=== PATIENT | male | born 1995 | race Two or more races ===

== ENCOUNTER 2023-10-19 06:05 | Inpatient (IN) | payer BC ==
[~2023-10-19] VITALS: Ht 167.6 cm; Wt 84.1 kg
[2023-10-19 06:42] LABS: ANION GAP 10 mmol/L (8-16); CALCIUM, TOTAL 8.7 mg/dL (8.8-10.5); CARBON DIOXIDE 29 mmol/L (22-29); CHLORIDE 100 mmol/L (98-107); CREATININE 1.19 mg/dL (0.60-1.30); GLOMERULAR FILTR. RATE CALC > 60 mL/min (>60); GLUCOSE,RANDOM 124 mg/dL (70-110); SODIUM SERUM 139 mmol/L (136-145); UREA NITROGEN, BLOOD 17 mg/dL (7-18)
[2023-10-19 06:43] LABS: ALCOHOL, BLOOD (SERUM) < 3 mg/dL (0-10)
[2023-10-19 06:48] LABS: ALANINE AMINOTRANSFERASE 33 U/L (12-78); ALBUMIN 4.4 g/dL (3.4-5.0); ALKALINE PHOSPHATASE 95 U/L (46-116); ASPARTATE AMINOTRANSFERASE 20 U/L (15-37); BILIRUBIN,TOTAL 0.4 mg/dL (0.1-1.0); TOTAL PROTEIN, SERUM 8.1 g/dL (6.4-8.2)
[2023-10-19 07:51] LABS: PH,URINE DRUG SCREEN 6.5 (5.0-8.0)
[2023-10-19 07:57] LABS: ALCOHOL, URINE DRUG SCREEN NEGATIVE (NEGATIVE); AMPHET/METH SCREEN,URINE NEGATIVE (NEGATIVE); BARBITURATE SCREEN, URINE NEGATIVE (NEGATIVE); BENZODIAZEPINES SCREEN,URINE NEGATIVE (NEGATIVE); CANNABINOID SCREEN,URINE POSITIVE (NEGATIVE); COCAINE SCREEN,URINE NEGATIVE (NEGATIVE); METHADONE SCREEN, URINE NEGATIVE (NEGATIVE); OPIATE SCREEN,URINE NEGATIVE (NEGATIVE); PHENCYCLIDINE SCREEN,URINE NEGATIVE (NEGATIVE)
[2023-10-19] MEDS ORDERED: LORazepam 2 MG TABLET PO PRN (08:15)
[2023-10-19] MEDS ORDERED: HALOPERIDOL 5 MG TABLET PO PRN (08:15)
[2023-10-19] MEDS ORDERED: ZOLPIDEM TARTRATE 10 MG TABLET PO PRN (08:15)
[2023-10-19 08:32] LABS: BASOPHILS % (AUTO) 0.5 % (0.0-2.0); EOSINOPHILS % (AUTO) 1.6 % (1.0-6.0); HEMATOCRIT 44.7 % (41-53); HEMOGLOBIN 15.1 g/dL (13.5-17.5); LYMPHOCYTES # (AUTO) 3.7 K/uL (1.0-4.8); LYMPHOCYTES % (AUTO) 34.7 % (22.0-44.0); MEAN CORPUSCULAR HEMOGLOBIN 31.8 pg (26.0-34.0); MEAN CORPUSCULAR HGB CONC 33.7 G/dL (31.0-37.0); MEAN CORPUSCULAR VOLUME 94 fL (80-100); MONOCYTES # (AUTO) 0.9 K/uL (0.1-1.0); MONOCYTES % (AUTO) 8.1 % (2.0-9.0); NEUTROPHILS # (AUTO) 5.9 K/uL (1.8-7.7); NEUTROPHILS % (AUTO) 55.1 % (40.0-70.0); PLATELET COUNT (AUTO) 425 K/uL (150-450); RED BLOOD CELL COUNT(AUTO) 4.74 MIL/uL (4.50-5.90); WHITE BLOOD COUNT (AUTO) 10.7 K/uL (4.5-11.0)
[2023-10-19 09:54] LABS: COVID AG,FIA SOURCE NASAL SWAB
[2023-10-19 10:36] LABS: SARS-COV2 (COVID) ANTIGEN,FIA Negative (Negative)
[2023-10-19 11:29] VITALS: BP 149/90; PULSE 66; RESP 18; TEMP 97.5; O2SAT 96
[2023-10-19] MEDS ORDERED: DOCUSATE SODIUM 100 MG CAPSULE PO PRN (20:00)
[2023-10-19] MEDS ORDERED: LOPERAMIDE HCL 2 MG CAPSULE PO PRN (20:00)
[2023-10-19] MEDS ORDERED: MAG HYDROX/ALUMINUM HYD/SIMETH ES 30 ML SUSPENSION UDCUP PO PRN (20:00)
[2023-10-19] MEDS ORDERED: CloNIDine HCL 0.1 MG TABLET PO PRN (20:00)
[2023-10-19] MEDS ORDERED: MAGNESIUM HYDROXIDE SUSPENSION 30 ML UDCUP PO PRN (20:00)
[2023-10-19] MEDS ORDERED: PETROLATUM,WHITE 28 GM JELLY TP PRN (20:00)
[2023-10-19] MEDS ORDERED: NICOTINE 14 MG/24 HOUR PATCH TD PRN (20:00)
[2023-10-19] MEDS ORDERED: ACETAMINOPHEN 325 MG TABLET PO PRN (20:00)
[2023-10-19] MEDS ORDERED: ALBUTEROL SULFATE HFA 90 MCG/PUFF 8 GM INHALER IH PRN (20:00)
[2023-10-19] MEDS ORDERED: GuaiFENesin/D-METHORPHAN [SUGAR-FREE] 200-20MG/10 ML SYRUP UDCUP PO PRN (20:00)
[2023-10-19] MEDS ORDERED: ONDANSETRON HCL 4 MG TABLET PO PRN (20:00)
[2023-10-19] MEDS ORDERED: IBUPROFEN 400 MG TABLET PO PRN (20:00)
[2023-10-19 21:47] VITALS: BP 135/73; PULSE 78; RESP 18; TEMP 97.5; O2SAT 98
[2023-10-20 08:23] LABS: CHOL/HDL RATIO 4.4 (4.2-7.3); THYROID STIMULATING HORMONE 19.62 uIU/mL (0.36-3.74)
[2023-10-20 08:43] LABS: APPEARANCE,URINE CLEAR (CLEAR); BILIRUBIN,URINE NEGATIVE (NEGATIVE); COLOR,URINE YELLOW (YELLOW); GLUCOSE, URINE (UA) NEGATIVE (NEGATIVE); KETONES,URINE TRACE mg/dL (NEGATIVE); LEUKOCYTE ESTERASE ,URINE NEGATIVE (NEGATIVE); NITRATE,URINE NEGATIVE (NEGATIVE); OCCULT BLOOD,URINE NEGATIVE (NEGATIVE); PH,URINE 6.5 (5.0-8.0); PH,URINE DRUG SCREEN 6.5 (5.0-8.0); PROTEIN,URINE TRACE mg/dL (NEGATIVE); SPECIFIC GRAVITIY, URINE 1.031 (1.003-1.030)
[2023-10-20 08:54] LABS: HEMOGLOBIN A1C 5.8 % (3.8-5.6)
[2023-10-20 09:09] VITALS: BP 136/78; PULSE 92; RESP 18; TEMP 98.7; O2SAT 96
[2023-10-20 09:35] LABS: ALCOHOL, URINE DRUG SCREEN NEGATIVE (NEGATIVE); AMPHET/METH SCREEN,URINE NEGATIVE (NEGATIVE); BARBITURATE SCREEN, URINE NEGATIVE (NEGATIVE); BENZODIAZEPINES SCREEN,URINE NEGATIVE (NEGATIVE); CANNABINOID SCREEN,URINE POSITIVE (NEGATIVE); COCAINE SCREEN,URINE NEGATIVE (NEGATIVE); METHADONE SCREEN, URINE NEGATIVE (NEGATIVE); OPIATE SCREEN,URINE NEGATIVE (NEGATIVE); PHENCYCLIDINE SCREEN,URINE NEGATIVE (NEGATIVE)
[2023-10-20 20:15] VITALS: BP 138/75; PULSE 87; RESP 18; TEMP 97.9; O2SAT 98
[2023-10-21 08:44] VITALS: BP 138/68; PULSE 69; RESP 18; TEMP 97.5; O2SAT 98
[2023-10-21 20:31] VITALS: BP 129/82; PULSE 82; RESP 18; TEMP 98.6; O2SAT 99
[2023-10-22 07:56] VITALS: BP 142/80; PULSE 78; RESP 18; TEMP 98.2; O2SAT 99
[2023-10-22 08:01] VITALS: BP 142/80; PULSE 78; RESP 18; TEMP 98.2; O2SAT 99
[2023-10-22] MEDS: LEVOTHYROXINE SODIUM 50 MCG TABLET PO SCH (08:39)
[2023-10-22] MEDS ORDERED: LEVO50TA11 PO (11:40)
== END 2023-10-22 16:43 | disposition home or self-care (01) | DRG 881 ==
LOC: EMS 06:08 → 3EI 09:25
PROVIDERS: ADMIT Psychiatry & Neurology Child & Adolescent Psychiatry; ATTEND Psychiatry & Neurology Child & Adolescent Psychiatry
DX: F32.9 Major depressive disorder, single episode, unspecified (principal); R45.851 Suicidal ideations; Z20.822 Contact with and (suspected) exposure to COVID-19; F41.9 Anxiety disorder, unspecified; R73.9 Hyperglycemia, unspecified; F12.90 Cannabis use, unspecified, uncomplicated; R94.6 Abnormal results of thyroid function studies
CPT/HCPCS: 80053; 80061; 80307; 81003; 83036; 84443; 85025; 99285; G0480